=== PATIENT | female | born 1970 | race Two or more races ===

== ENCOUNTER 2021-07-04 05:28 | Emergency (ER) | payer OTHER ==
[~2021-07-04] VITALS: Ht 154.9 cm; Wt 56.7 kg
--- NOTE | 2021-07-04 06:02 | NUR ---
PT BIBFRIEND FROM HOME C/O "ABSCESS", REDNESS, & PAIN TO R BUTTOCK. PT AWAKE AND ALERT X4 AMBULATORY WITH STEADY GAIT. PT CHANGED INTO A GOWN. ALL V/S STABLE.
--- NOTE | 2021-07-04 06:11 | NUR ---
URINE COLLECTED AND SENT TO LAB
[2021-07-04] MEDS ORDERED: PIPERACILLIN /TAZOBACTAM 3.375 G VIAL IV ONE (06:14)
--- NOTE | 2021-07-04 06:19 | NUR ---
PUBLICATIONS WRITER AT PT'S BEDSIDE
--- NOTE | 2021-07-04 06:28 | NUR ---
METAL DEALER AT PT'S BEDSIDE
[2021-07-04] MEDS ORDERED: VANCOMYCIN 1 GM in IV D5W 250 ML IV ONE (06:30)
[2021-07-04] MEDS ORDERED: PIPERACILLIN /TAZOBACTAM 3.375 G in IV D5W 50 ML IV ONE (06:30)
[2021-07-04 06:34] LABS: BASOPHILS % (AUTO) 0.3 % (0.0-2.0); HEMATOCRIT 37 % (33-45); HEMOGLOBIN 12.1 g/dL (11.5-14.8); LYMPHOCYTES # (AUTO) 2.2 K/uL (0.8-4.8); LYMPHOCYTES % (AUTO) 17.6 % (20.0-44.0); MEAN CORPUSCULAR HGB CONC 33 g/dl (31.0-36.0); MEAN CORPUSCULAR VOLUME 77 fL (82-100); MONOCYTES # (AUTO) 0.8 K/uL (0.1-1.30); MONOCYTES % (AUTO) 6.3 % (2.0-12.0); NEUTROPHILS # (AUTO) 9.4 K/uL (1.8-8.9); NEUTROPHILS % (AUTO) 74.8 % (43.0-81.0); PLATELET COUNT (AUTO) 290 K/uL (150-450); RED BLOOD CELL COUNT(AUTO) 4.78 MIL/uL (4.0-5.2); WHITE BLOOD COUNT (AUTO) 12.6 K/uL (4.3-11.0)
[2021-07-04 06:36] LABS: BILIRUBIN,URINE NEGATIVE (NEGATIVE); COLOR,URINE YELLOW (YELLOW); LEUKOCYTE ESTERASE ,URINE NEGATIVE (NEGATIVE); NITRITE, URINE NEGATIVE (NEGATIVE); PH,URINE 5.5 (5.0-8.0); PROTEIN,URINE NEGATIVE (NEGATIVE); UGLUCOSE NEGATIVE (NEGATIVE)
[2021-07-04 06:49] LABS: BACTERIA,URINE Rare /HPF (None Seen); RBC,URINE 0-2 /HPF (0-2); SQUAMOUS EPITHELIAL CELL,UR Few /HPF (None Seen)
[2021-07-04] MEDS ORDERED: IV NS 0.9% 250 ML IV ONE (06:49)
[2021-07-04] MEDS ORDERED: CT SWABBABLE VALVE TRANS SET 1 EA INFUS.SET MC ONE (06:49)
[2021-07-04] MEDS ORDERED: IOHEXOL-300 100 ML VIAL IV ONE (06:49)
[2021-07-04 06:56] LABS: ALANINE AMINOTRANSFERASE 52 U/L (12-78); ALBUMIN 2.6 g/dL (3.4-5.0); ALKALINE PHOSPHATASE 111 U/L (46-116); ASPARTATE AMINOTRANSFERASE 68 U/L (15-37); BILIRUBIN,DIRECT 0.1 mg/dL (0.0-0.2); BILIRUBIN,TOTAL 0.2 mg/dL (0.2-1.0); CALCIUM, SERUM 8.5 mg/dL (8.5-10.1); CARBON DIOXIDE 28 mmol/L (21-32); CHLORIDE 98 mmol/L (98-107); CREATININE 0.7 mg/dL (0.6-1.3); GLUCOSE 99 mg/dL (74-106); POTASSIUM 3.8 mmol/L (3.5-5.1); SODIUM SERUM 129 mmol/L (136-145); TOTAL PROTEIN, SERUM 8.2 g/dL (6.4-8.2); UREA NITROGEN, BLOOD 14 mg/dL (7-18)
--- NOTE | 2021-07-04 07:38 | NUR ---
CONTACTED NURSING SUPP. FOR MIDLINE INSERTION. ETA TIME IN AN HOUR APPROX. [id number]
--- NOTE | 2021-07-04 07:38 | NUR ---
Femi owens in [facility] - 07/04/21 at 0742 by CELI CONTACTED NURSING SUPP. JAVIER RUDOLPH ETA TIME IN AN HOUR APPROX.[id number]
--- NOTE | 2021-07-04 07:40 | NUR ---
Femi owens in ED - 07/04/21 at 0742 by CELI CONTACTED NURSING SUPP. FOR PICC LINE INSERTION
[2021-07-04] MEDS ORDERED: TRAZ-182 PO (07:41)
[2021-07-04] MEDS ORDERED: BUPR-96 PO (07:41)
[2021-07-04] MEDS ORDERED: ZOLPIDEM TARTRATE 5 MG TABLET PO PRN (08:00)
[2021-07-04] MEDS ORDERED: IV NS 0.9% 1,000 ML IV PRN (08:00)
[2021-07-04] MEDS ORDERED: ONDANSETRON HCL/PF 4 MG/2 ML VIAL IVP PRN (08:00)
[2021-07-04] MEDS ORDERED: ACETAMINOPHEN 325 MG TABLET PO PRN (08:00)
[2021-07-04] MEDS ORDERED: Z GUARD REMEDY 4 OZ OINT TP PRN (08:00)
[2021-07-04] MEDS ORDERED: HYDROCODONE/APAP 5/325MG TABLET PO PRN (08:00)
[2021-07-04] MEDS ORDERED: MORPHINE SULFATE INJ 2 MG/ML DISP.SYRIN IV PRN (08:00)
--- NOTE | 2021-07-04 08:34 | NUR ---
PICC LINE RN AT BEDSIDE.
--- NOTE | 2021-07-04 08:55 | NUR ---
MIDLINE INSITU AT R UPPER ARM G20
--- NOTE | 2021-07-04 10:01 | NUR ---
BED 314-2
--- NOTE | 2021-07-04 10:07 | NUR ---
REPORT GIVEN TO CATARINA RN MS UNIT
--- NOTE | 2021-07-04 10:30 | NUR ---
DR SIMPSON CALLED AND TX TO DR STEELE FOR SX CONSULT
--- NOTE | 2021-07-04 10:31 | NUR ---
ORTHO ON-CALL,DR ALLIOSN CALLED FOR CONSULT
--- NOTE | 2021-07-04 10:33 | NUR ---
CARLOS ELAINE ON-CALL BEING PAGED
--- NOTE | 2021-07-04 11:01 | NUR ---
[facility] CALLED FOR HIGHER LEVEL OF CARE MAYNOR WEBB WILL CALL US BACK
--- NOTE | 2021-07-04 11:07 | NUR ---
CALL BACK FROM [facility] TO [facility]
[2021-07-04 11:20] VITALS: BP 104/52
--- NOTE | 2021-07-04 11:58 | NUR ---
IV removed. Catheter intact and site benign. Pressure and 4x4 applied to site. No bleeding noted.Patient does not wish to proceed with medical care recommended by Dr. STEELE. Patient given information related to possible complications, up to and including , which could occur as a result of leaving the hospital at this time. Patient verbalizes understanding of risks involved due to leaving against medical advice. Patient has signed AMA form.
[2021-07-04] MEDS ORDERED: PIPERACILLIN /TAZOBACTAM 4.5 G in IV D5W 50 ML IV SCH (15:00)
[2021-07-04] MEDS ORDERED: VANCOMYCIN 1 GM in IV D5W 250ml IV SCH (21:00)
== END 2021-07-04 12:00 | disposition left against medical advice (07) ==
LOC: ER 05:30 → UNDOADMIN 10:07 → MED 10:07
DX: L03.317 Cellulitis of buttock (principal); G92.9 Unspecified toxic encephalopathy; F11.10 Opioid abuse, uncomplicated; E87.1 Hypo-osmolality and hyponatremia; Z20.822 Contact with and (suspected) exposure to COVID-19; Z53.29 Procedure and treatment not carried out because of patient's decision for other reasons; Z86.19 Personal history of other infectious and parasitic diseases; G40.909 Epilepsy, unspecified, not intractable, without status epilepticus; Z79.899 Other long term (current) drug therapy
CPT/HCPCS: 36410; 36415; 71045; 74177; 80048; 80076; 80307; 80320; 81001; 83605; 84145; 84484; 84703; 85025; 85730; 87040 ×2; 87086; 87426; 93005; 96365; 96367; 99285; C9803; J2543; J3370 ×2; J7030; J7050; J7060; Q9967; G0480